=== PATIENT | male | born 1995 | race Caucasian/White ===

== ENCOUNTER 2019-07-16 13:32 | Emergency (ER) | payer OTHER, SELFPAY ==
[2019-07-16 13:45] VITALS: BP 121/66; PULSE 97; RESP 20; TEMP 36.7; O2SAT 99
--- NOTE | 2019-07-16 13:48 | ED.GENADULT ---
HPI - General Adult General Chief complaint: Upper Respiratory Infection Stated complaint: sore throat Time Seen by Provider: 07/16/19 13:49 Source: patient Mode of arrival: ambulatory Limitations: no limitations History of Present Illness HPI narrative: 23-year-old male patient presents to the [facility] with complaints of sore throat and noticed a rash on his chest yesterday. Patient states that he was diagnosed with strep throat about a week ago was placed on amoxicillin. Patient states he has been on amoxicillin for quite some time but noticed that he broke out in a rash yesterday. Patient denies itchiness to the rash. Denies any trouble breathing swelling to the face or tongue. Patient states he feels like he still has strep because the sore throat has not really gone away. Denies any fevers. Related Data Home Medications Medication Instructions Recorded Confirmed No Home Medications 07/16/19 07/16/19 Allergies Allergy/AdvReac Type Severity Reaction Status Date / Time No Known Allergies Allergy Verified 07/16/19 13:49 Review of Systems Review of Systems: Narrative: CONSTITUTIONAL: Denies fever, chills, or sweats. EYES: Denies visual changes, redness, or discharge. ENT: Denies rhinorrhea, congestion, positive sore throat, denies otalgia. CARDIOVASCULAR: Denies chest pain, palpitations, or edema. RESPIRATORY: Denies cough or dyspnea. GASTROINTESTINAL: Denies abdominal pain, nausea, vomiting, or diarrhea. GENITOURINARY: Denies dysuria or hematuria. SKIN: Positive rash to chest and trunk MUSCULOSKELETAL: Denies back pain, joint pain, or myalgia. NEUROLOGIC: Denies headache, numbness, or weakness. PSYCHIATRIC: Denies anxiety or depression. PMFSH Social History Social History Gender identity (if verbalized by the patient): Male Comments At the time of my signature I agree with nursing past medical history, surgical, social, and family history. There is no relevant family history pertinent to the presenting complaint. Exam Narrative: Exam Narrative: GENERAL: Well-appearing, well-nourished, and in no acute distress. HEAD: Normocephalic, atraumatic. EYES: PERRLA and EOMI. ENT: Nares clear, no rhinorrhea or epistaxis. Mucous membranes moist. Posterior pharynx with 2+ tonsil enlargement slight erythema but no tonsil exudates or lesions are present. Bilateral TMs are clear with no erythema or foreign bodies in the canal. NECK: Supple. No lymphadenopathy CHEST: Clear to auscultation. No respiratory distress. HEART: Regular rate and rhythm. No murmur heard. Normal peripheral pulses. ABDOMEN: Soft, nontender, nondistended, normal active bowel sounds. EXTREMITIES: Normal range of motion. No edema. SKIN: Patient has a very fine flat papule rash noted from the neck to the waist all over the anterior trunk. There is no itchiness to this rash. There is no raised areas noted. NEURO: No focal deficits. Alert and oriented x3. Course Vital Signs Vital signs: Vital Signs Temperature 36.7 C 07/16/19 13:45 Pulse Rate 97 07/16/19 13:45 Respiratory Rate 07/16/19 13:45 Blood Pressure 121/66 07/16/19 13:45 Pulse Oximetry 99 07/16/19 13:45 Temperature 36.7 C 07/16/19 13:45 Pulse Rate 97 07/16/19 13:45 Respiratory Rate 07/16/19 13:45 Blood Pressure 121/66 07/16/19 13:45 Pulse Oximetry 99 07/16/19 13:45 Vital signs reviewed. Medical Decision Making Differential Diagnosis Differential Diagnosis: Differential diagnosis: Viral pharyngitis, pharyngitis, group A strep, infectious mononucleosis, gonococcal pharyngitis, exudative pharyngitis, oral candidiasis. Chronic allergies, postnasal drip, GERD, abscess formation, but glottitis, retropharyngeal abscess formation, or airway obstruction. Discussed with patient that his strep test today is negative however he is positive for mono. Discussed with patient he has the rash because he i
== END 2019-07-16 14:01 | disposition home or self-care (01) ==
PROVIDERS: Emergency Provider Nurse Practitioner Family
DX: B27.10 Cytomegaloviral mononucleosis without complications (principal)
CPT/HCPCS: 86308; 87880; 99202; G0463

== ENCOUNTER → 2022-01-20 08:47 | Outpatient (CLI) | payer OTHER, SELFPAY ==
--- NOTE | ~2022-01-20 | CT_ITS ---
EXAMINATION: CT brain wo con DATE: 01/20/2022 09:08 INDICATION: Nystagmus. Headaches. TECHNIQUE: Computed tomography (CT) of the head was performed without intravenous contrast. The mA wa s adjusted according to patient size. Iterative reconstruction technique was employed. Exam dose: 59 9.57 mGy-cm total exam DLP. COMPARISON: None FINDINGS: No intracranial mass lesion or hemorrhage or cerebrovascular accident is detected. No midli ne shift or mass effect. Normal ventricular size. Normal frias-white matter differentiation. No subdur al or epidural hematoma is detected. No orbital mass lesion is evident. The optic nerves appear symmetric and unremarkable. The mastoid air cells and included paranasal sinuses appear normal. No fracture or bone destruction o f the cranial vault is detected IMPRESSION: Negative Reviewed, dictated and finalized at [facility] Reviewed, dictated and finalized at [facility]. IMPRESSION: Negative
== END ==
PROVIDERS: PCP Family Medicine; Visit Provider Family Medicine
DX: H55.00 Unspecified nystagmus (principal)
CPT/HCPCS: 70450